=== PATIENT | female | born 1975 | race Caucasian/White ===

== ENCOUNTER 2018-06-27 14:00 | Outpatient (REF) | payer SELFPAY ==
[2018-06-27 20:12] LABS: HCT 47.2 % (36.0-46.0); HGB 16.2 g/dL (12.0-15.5); Mean Corp. HGB Concentration 34.3 g/dL (32.0-36.0); Mean Corpuscular Hemoglobin 32.1 pg (27.0-33.0); Mean Corpuscular Volume 93.7 fL (80-95); Mean Platelet Volume 12.1 fL (8.0-11.0); Platelet Count 265 x1000/uL (130-400); RBC 5.04 m/cumm (4.00-5.20); RBC Distribution Width 13.9 % (11.7-14.6); White Blood Cell Count 8.91 k/cumm (4.4-10.8)
[2018-06-27 20:43] LABS: ALT 20 U/L (12-78); AST 14 U/L (15-37); Albumin 3.8 g/dL (3.4-5.0); Alkaline Phosphatase 77 U/L (46-116); Anion Gap 12.7 mmol/L (3-11); BUN 7 mg/dL (7-18); Bilirubin, Total 0.4 mg/dL (0.2-1.0); CO2 24.3 mmol/L (21.0-32.0); CREATININE 0.61 mg/dL (0.55-1.02); Calcium 9.4 mg/dL (8.5-10.1); Chloride 102 mmol/L (98-107); Glucose 129 mg/dL (70-100); Potassium 3.9 mmol/L (3.5-5.1); Sodium 139 mmol/L (136-145); Total Protein 7.4 g/dL (6.4-8.2)
== END 2018-06-27 14:20 ==
LOC: NCHCN 14:00
PROVIDERS: Visit Provider Physician Assistant Medical
DX: R61 Generalized hyperhidrosis (principal); R20.9 Unspecified disturbances of skin sensation; R22.1 Localized swelling, mass and lump, neck
CPT/HCPCS: 80053; 85027

== ENCOUNTER 2023-05-15 14:55 | Outpatient (REF) | payer SELFPAY ==
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
[2023-05-15 20:12] LABS: HCT 47.6 % (36.0-46.0); HGB 16.3 g/dL (11.2-15.7); MCHC 34.2 % (32.0-36.0); MCV 91 fL (80-95); Platelet Count 181 10^3/uL (130-400); RBC 5.26 10^6/uL (3.93-5.22); RDW-SD 43.8 fL; WBC 10.67 10^3/uL (4.4-10.8)
== END 2023-05-15 14:56 | disposition home or self-care (01) ==
LOC: NCHCN 14:55
PROVIDERS: Visit Provider Nurse Practitioner Family
DX: D72.829 Elevated white blood cell count, unspecified (principal)
CPT/HCPCS: 85027

== ENCOUNTER 2024-04-02 12:22 | Outpatient (REF) | payer MEDICAID, SELFPAY ==
[2024-04-02 20:07] LABS: Abs Immature Grans 0.02 10^3/uL (0.0-0.06); Absolute Basophil Count 0.04 10^3/uL (0.0-0.2); Absolute Eosinophil Count 0.31 10^3/uL (0.0-0.7); Absolute Monocyte Count 0.43 10^3/uL (0.1-0.8); Absolute Neutrophil Count 4.11 10^3/uL (1.2-6.7); Basophils % 0.6 %; Eosinophils % 4.6 %; HCT 47.4 % (36.0-46.0); HGB 15.9 g/dL (11.2-15.7); Immature Grans % 0.3 %; Lymphocytes % 27.9 %; MCHC 33.5 % (32.0-36.0); MCV 92 fL (80-95); MPV 12.6 fL (8.0-11.0); Monocytes % 6.3 %; Neutrophils % 60.3 %; Platelet Count 229 10^3/uL (130-400); RBC 5.13 10^6/uL (3.93-5.22); RDW 13.5 % (11.7-14.6); RDW-SD 46.1 fL; WBC 6.81 10^3/uL (4.4-10.8)
[2024-04-02 20:23] LABS: Hemoglobin A1C 5.6 % (<5.7)
[2024-04-02 20:26] LABS: ALT 15 U/L (14-59); AST 22 U/L (15-37); Albumin 3.5 g/dL (3.4-5.0); Alkaline Phosphatase 76 U/L (46-116); Anion Gap 9.3 mmol/L (3-11); BUN 11 mg/dL (7-18); Bilirubin, Total 0.57 mg/dL (0.2-1.0); CO2 23.7 mmol/L (21.0-32.0); CREATININE 0.7 mg/dL (0.55-1.02); Calculated LDL 120 mg/dL (<100); Chloride 106 mmol/L (98-107); Cholesterol 189 mg/dL (<200); Estimated GFR 105.95 (mL/min/1.73m2); Glucose 93 mg/dL (74-106); HDL Cholesterol 54 mg/dL (40-60); Potassium 4.8 mmol/L (3.5-5.1); Sodium 139 mmol/L (136-145); TSH (W/Ref FT4) 1.18 uIU/mL (0.36-3.74); Total Protein 7.5 g/dL (6.4-8.2); Triglyceride 76 mg/dL (<150)
[2024-04-04 19:11] LABS: HIV-1/2 Ag & Ab Screen Negative (Negative)
[2024-04-04 19:17] LABS: Hepatitis C Ab w Rflx HCV PCR Negative (Negative)
== END 2024-04-02 12:23 | disposition home or self-care (01) ==
LOC: NCHCN 12:22
PROVIDERS: PCP Physician Assistant; Visit Provider Physician Assistant
DX: Z13.220 Encounter for screening for lipoid disorders (principal); E66.9 Obesity, unspecified; Z11.59 Encounter for screening for other viral diseases; Z11.4 Encounter for screening for human immunodeficiency virus [HIV]
CPT/HCPCS: 80053; 80061; 86803; 87389; 83036; 84443; 85025